=== PATIENT | male | born 1950 | race Caucasian/White ===

== ENCOUNTER 2018-10-26 12:11 | Emergency (ER) | payer OTHER, BC ==
--- OUTSIDE RECORDS SUMMARY | 2018-10-26 12:13 | XMS REPORT | Continuity of Care Document ---
:1950 Author Organization Interface Problems Problem Status Onset Classification Date Comments Source Date Reported FACIAL Active [facility] FRACTURE [facility] FRACTURE OF Active [facility] NASAL BONES, Medical INIT ENCNTR Center FOR FRACTURE OF Active [facility] ORBITAL Medical FLOOR, INIT Center ENCNTR F Medications Medication Details Route Status Patient Ordering Order Source Instructions Provider Date Allergies, Adverse Reactions, Alerts Substance Category Reaction Severity Reaction Status Date Comments Source type Reported Immunizations Immunization Date Given Site Status Last Updated Comments Source Results Order Results Value Reference Date Interpretation Comments Source Name Range Vital Signs Vital Sign Value Date Comments Source Encounters Location Location Encounter Encounter Reason Attending ADM DC Status Source Details Type Number For Provider Date Date Visit Procedures Procedure Code Date Perfomer Comments Source
--- OUTSIDE RECORDS SUMMARY | 2018-10-26 12:14 | XMS REPORT ---
:1950 [facility] Address [address] [place] [address] Care Team Providers Name Role Phone Unavailable Unavailable Unavailable Payers Payer Name Policy Type Policy Number Effective Date Expiration Date Problems This patient has no known problems. Allergies, Adverse Reactions, Alerts Allergy Allergy Status Severity Reaction(s) Onset Inactive Treating Comments Name Type Date Date Clinician No Known DA Active U 2018-09 Allergies 15 00:00:0 0 Medications This patient has no known medications. Results Test Description Test Time Test Comments Text Results Atomic Results Result Comments BASIC METABOLIC PANEL 2018-10-22 07:26:00 Test Item Value Reference Range Comments SODIUM (test code=NA) 137 mmol/L 136-145 POTASSIUM (test code=K) 5.1 mmol/L 3.5-5.1 CHLORIDE (test code=CL) 103.0 mmol/L 98-107 CARBON DIOXIDE (test code=CO2) 21.6 mmol/L 21-32 GLUCOSE (test code=GLU) 127 mg/dL 70-110 BLOOD UREA NITROGEN (test 33 mg/dL 7-18 code=BUN) GLOMERULAR FILTRATION RATE (test 38.5 >60 Unit of measure: mL/min/1.73 code=GFR) [id number] Range:Healthy Adults >90 mL/min/1.73 m2 For Chronic Kidney Disease: Stage II Mild Decrease in GFR 60-90 Stage III Moderate Decrease in GFR 30-59 Stage IV Severe Decrease in GFR 15-29 Stage V Kidney Failure <15 CREATININE (test code=CREAT) 1.76 mg/dL 0.55-1.30 CALCIUM (test code=CA) 7.6 mg/dL 8.2-10.1 HGB [id number] 06:05:00 Test Item Value Reference Range Comments HEMOGLOBIN (test code=HGB) 12.0 g/dL 12-16 HEMATOCRIT (test code=HCT) 36.5 % 37-47 COMPREHENSIVE METABOLIC [id number] 15:18:00 Test Item Value Reference Range Comments SODIUM (test code=NA) 137 mmol/L 136-145 POTASSIUM (test code=K) 4.3 mmol/L 3.5-5.1 CHLORIDE (test code=CL) 102.0 mmol/L 98-107 CARBON DIOXIDE (test code=CO2) 25.3 mmol/L 21-32 GLUCOSE (test code=GLU) 82 mg/dL 70-110 BLOOD UREA NITROGEN (test 15 mg/dL 7-18 code=BUN) GLOMERULAR FILTRATION RATE 55.1 >60 Unit of measure: (test code=GFR) mL/min/1.73 [id number] Range:Healthy Adults >90 mL/min/1.73 m2 For Chronic Kidney Disease: Stage II Mild Decrease in GFR 60-90 Stage III Moderate Decrease in GFR 30-59 Stage IV Severe Decrease in GFR 15-29 Stage V Kidney Failure <15 CREATININE (test code=CREAT) 1.29 mg/dL 0.55-1.30 TOTAL PROTEIN (test code=PROT) 6.7 g/dL 6.4-8.2 ALBUMIN (test code=ALB) 3.7 g/dL 3.4-5.0 GLOBULIN (test code=GLOB) 3.0 g/dL 2.2-4.2 ALBUMIN/GLOBULIN RATIO (test 1.2 0.7-2.0 code=A/G) CALCIUM (test code=CA) 8.4 mg/dL 8.2-10.1 BILIRUBIN TOTAL (test 0.40 mg/dL 0.2-1.00 code=BILT) SGOT/AST (test code=AST) 31.0 U/L 15-37 SGPT/ALT (test code=ALT) 31.0 U/L 12-78 Please note new normal range. ALKALINE PHOSPHATASE TOTAL 86 U/L 46-116 (test code=ALKP) PROTHROMBIN [id number] 15:15:00 Test Item Value Reference Range Comments PROTHROMBIN TIME PATIENT 11.7 secs 10.1-12.5 (test code=PTP) INTERNATIONAL NORMAL RATIO 1.04 <2.0 RECOMMENDED THERAPEUTIC RANGE (test code=INR) FOR ORAL ANTICOAGULANTTREATMENT: CONDITION INRProphylaxis of venous thrombosis in 2.0 - 3.0 high-risk medical or surgical patientsTreatment of venous thrombosis 2.0 - 3.0Prevention of embolism 2.0 - 3.0Prevention of recurrent embolism, or 3.0 - 4.5 patients with mechanical prosthetic intravascular valves IS PATIENT ON ANTICOAGULANTS ? YLIST ANTICOAGULANT/ANTI PLT MEDICATION : AspirinHas Lab been notified if Patient is on Heparin Drip? NOIf Yes, order CBC , OCCULT BLOOD, PT every other day NTHROMBOPLASTIN TIME [id number] 15:15: 00 Test Item Value Reference Range Comments PTT ACTIVATED (test code=APTT) 30.1 secs 24.9-37.0 IS PATIENT ON ANTICOAGULANTS ? YLIST ANTICOAGULANT/ANTI PLT MEDICATION : AspirinHas Lab been notified if Patient is on Heparin Drip? NOIf Yes, order CBC , OCCULT BLOOD, PT every other day NCBC W/AUTO [id number] 14:52:00 Test Item Value Reference Range Comments WHITE BLOOD CELL (test code=WBC) 7.9 K/mm3 5.7-10.5 RED BLOOD CELL (test code=RBC) 4.70 M/mm3 4.2-5.4 HEMOGLOBIN (test code=HGB) 14.4 g/dL 12-16 HEMATOCRIT (test code=HCT) 43.7 % 37-47 MEAN CELL VOLUME (test code=MCV) 93 fL 80-98 MEAN CELL HGB (test code=MCH) 30.6 pg 27-34 MEAN CELL HGB CONCENTRATION (test code=MCHC) 33.0 g/dL 30.8-34.1 RED CELL DISTRIBUTION WIDTH (test code=RDW) 14.0 % 11-16 PLT (test code=PLT) 270 K/mm3 130-400 MEAN PLATELET VOLUME (test code=MPV) 10.5 fL 8.9-12.1 NEUTROPHIL % (test code=NT%) 57.8 % 45-70 LYMPHOCYTE % (test code=LY%) 30.7 % 20-40 MONOCYTE % (test code=MO%) 9.2 % 3-10 EOSINOPHIL % (test code=EO%) 1.5 % 1-5 BASOPHIL % (test code=BA%) 0.4 % 0.0-1.1 NEUTROPHIL # (test code=NT#) 4.59 K/mm3 2.00-7.50 LYMPHOCYTE # (test code=LY#) 2.44 K/mm3 1.50-4.00 MONOCYTE # (test code=MO#) 0.73 K/mm3 0.2-0.8 EOSINOPHIL # (test code=EO#) 0.12 K/mm3 0.04-0.4 BASOPHIL # (test code=BA#) 0.03 K/mm3 0.02-0.10 MANUAL DIFF REQUIRED (test code=MDIFF) NO MANUAL DIFF NUCLEATED RED BLOOD CELL (test code=NRBC) 0 % 0-0
[2018-10-26 14:05] LABS: Absolute Lymphocytes (CBC) 1.6 K/uL (0.7-4.9); Absolute Neutrophil 7.5 K/uL (1.8-8.0); Basophils % 0.3 % (0-1.3); Eosinophils % 1.1 % (0-4.4); Hematocrit 36.8 % (39.6-49.0); Lymphocytes % 15.6 % (15.3-44.8); MPV 8.3 fL (7.6-11.3); Monocytes % 9.8 % (3.3-12.3); RBC Red Blood Cell Count 3.88 M/uL (4.33-5.43)
[2018-10-26 14:06] LABS: Protime INR 1.27
[2018-10-26] MEDS ORDERED: NA CHLORIDE 0.9% 1,000 ML ONE (14:16)
[2018-10-26 14:23] LABS: ALT/SGPT 24 U/L (12-78); AST/SGOT 32 U/L (15-37); Albumin 3.2 g/dL (3.4-5.0); Alkaline Phosphatase 62 U/L (45-117); BUN Blood Urea Nitrogen 20 mg/dL (7-18); Bicarbonate 25 mmol/L (21-32); Bilirubin Direct 0.2 mg/dL (0-0.2); Bilirubin Total 0.8 mg/dL (0.2-1.0); Glucose Level 90 mg/dL (74-106); Magnesium 2.6 mg/dL (1.8-2.4); NT PRO-BNP 137 pg/mL (<125); Potassium 4.5 mmol/L (3.5-5.1); Protein, Total 6.8 g/dL (6.4-8.2); Sodium Level 136 mmol/L (136-145); Troponin (Emerg Dept Use Only) < 0.02 ng/mL (0.0-0.045)
--- NOTE | 2018-10-26 14:23 | RAD REPORT ---
EXAM DESCRIPTION: RAD - Chest Single View - 10/26/2018 2:17 pm CLINICAL HISTORY: COPD COMPARISON: October 2017 TECHNIQUE: AP portable chest image was obtained 1401 hours . FINDINGS: No acute lung parenchymal process. Scarring and granulomatous calcifications are noted and stable. No failure or volume overload. Heart and vasculature are normal. No measurable pleural effus ion and no pneumothorax. No acute bony abnormality seen. No acute aortic findings suspected. IMPRESSION: No acute cardiopulmonary process. No significant interval change.
[2018-10-26] MEDS ORDERED: ONDANSETRON 4 MG/2 ML VIAL ONE (15:02)
[2018-10-26] MEDS ORDERED: MORPHINE 4 MG/ML SYR ONE (15:02)
--- NOTE | 2018-10-26 15:57 | ER ---
Nurse's Notes [facility] Name: Jagjit Chong Age: 68 yrs Sex: Male : 1950 Arrival Date: 10/26/2018 Time: 12:14 Bed 26 Private MD: Unknown, Unknown Diagnosis: Edema, unspecified;Chronic obstructive pulmonary disease, unspecified Presentation: 10/26 12:23 Presenting complaint: Patient states: surgery on left knee on 10/21/18 in [place] and sv noticed on Friday the swelling and "looking white on the bottom". Transition of care: patient was not received from another setting of care. Onset of symptoms was October 24, 2018. Care prior to arrival: None. 12:23 Method Of Arrival: Wheelchair sv 12:23 Acuity: CARMINA 3 sv 15:40 Risk Assessment: Do you want to hurt yourself or someone else? Patient reports no aj1 desire to harm self or others. Initial Sepsis Screen: Does the patient meet any 2 criteria? No. Patient's initial sepsis screen is negative. Does the patient have a suspected source of infection? No. Patient's initial sepsis screen is negative. Triage Assessment: 12:23 General: Appears in no apparent distress. uncomfortable, Behavior is calm, cooperative, sv appropriate for age. Pain: Complains of pain in left leg Pain currently is 4 out of 10 on a pain scale. Neuro: Level of Consciousness is awake, alert, obeys commands, Oriented to person, place, time, situation. Respiratory: Airway is patent Respiratory effort is even, unlabored, Respiratory pattern is regular, symmetrical. Musculoskeletal: Swelling present in left leg. Historical: - Allergies: 12:26 No Known Allergies; sv - PMHx: 12:26 COPD; High Cholesterol; Hypertension; left shoulder DVT; sv - PSHx: 12:26 left knee; left facial; sv - Immunization history:: Adult Immunizations up to date. - Social history:: Smoking status: Patient uses tobacco products, smokes 1.5 packs per day. - Ebola Screening: : No symptoms or risks identified at this time. - Family history:: not pertinent. Screenin:17 Abuse screen: Denies threats or abuse. Denies injuries from another. Nutritional aj1 screening: No deficits noted. Tuberculosis screening: No symptoms or risk factors identified. Assessment: 13:17 General: Appears in no apparent distress. uncomfortable, Behavior is calm, cooperative, aj1 appropriate for age. Pain: Complains of pain in left knee. Neuro: Level of Consciousness is awake, alert, obeys commands, Oriented to person, place, time, situation. Cardiovascular: Patient's skin is warm and dry. Edema is 3+ to left knee, left midcalf, left ankle and left foot. Respiratory: Airway is patent Respiratory effort is even, unlabored, Respiratory pattern is regular, symmetrical. GI: No signs and/or symptoms were reported involving the gastrointestinal system. : No signs and/or symptoms were reported regarding the genitourinary system. EENT: No signs and/or symptoms were reported regarding the EENT system. Derm: Wound noted left knee Wound is surgical incision, covered with bandage that says "remove on 10.28" small amount of drainage noted to bandage. Redness noted around knee, patient states that he can't remember if that redness has been present of has recently developed. 14:18 Reassessment: Patient appears in no apparent distress at this time. No changes from aj1 previously documented assessment. Patient and/or family updated on plan of care and expected duration. Pain level reassessed. Patient is alert, oriented x 3, equal unlabored respirations, skin warm/dry/pink. 15:20 Reassessment: Patient is alert, oriented x 3, equal unlabored respirations, skin aj1 warm/dry/pink. Ultrasound at bedside. Vital Signs: 12:26 BP 133 / 68; Pulse 94; Resp 20; Temp 98.2; Pulse Ox 97% ; Weight 81.65 kg; Height 5 ft. sv 5 in. (165.10 cm); Pain 4/10; 14:18 BP 118 / 87; Pulse 85; Resp 18; Pulse Ox 98% on R/A; aj1 15:20 BP 130 / 59; Pulse 97; Resp 18; Pulse Ox 97% ; aj1 16:25 BP 125 / 78; Pulse 90; Resp 18; Temp 98; Pulse Ox 100% on R/A; mg2 12:26 Body Mass Index 29.95 (81.65 kg, 165.10 cm) sv ED Course: 12:14 Patient arrived in ED. ag5 12:14 Unknown, Unknown is Private Physician. ag5 12:25 Triage completed. sv 12:28 Arm band placed on. sv 13:10 Griselda Tran, RN is Primary Nurse. aj1 13:17 Sam Jones MD is Attending Physician. [facility] 13:17 Patient has correct armband on for positive identification. Bed in low position. Call aj1 light in reach. Side rails up X 1. 13:17 No provider procedures requiring assistance completed. aj1 13:57 Initial lab(s) drawn, by me, sent to lab. Inserted saline lock: 20 gauge in right lt1 antecubital area, using aseptic technique. 14:00 X-ray completed. Portable x-ray completed in exam room. Patient tolerated procedure tm4 well. 14:02 XRAY Chest (1 view) In Process Unspecified. EDMS 15:34 US Extremity Venous W Compression Andrea In Process Unspecified. EDMS 16:24 IV discontinued, intact, bleeding controlled, No redness/swelling at site. Pressure mg2 dressing applied. Administered Medications: 14:06 Drug: NS 0.9% 1000 ml Route: IV; Rate: 125 ml/hr; Site: right antecubital; aj1 14:50 Drug: Zofran 4 mg Route: IVP; Site: right antecubital; 14:59 Drug: morphine 4 mg Route: IVP; Site: right antecubital; 16:08 Not Given (Pt states that he will take his dose tonight as he usually does, OK per Dr. kimberlee Jones): Xarelto 10 mg PO once Outcome: 15:57 Discharge ordered by . [facility] 16:25 Discharged to home via wheelchair, with family. mg2 16:25 Condition: stable 16:25 Discharge instructions given to patient, family, Instructed on discharge instructions, follow up and referral plans. medication usage, Demonstrated understanding of instructions, follow-up care, medications, Prescriptions given X 1. 16:25 Patient left the ED. mg2 Signatures: Dispatcher [employer] EDMS Griselda Tran, RN RN aj1 Park Wright RN RN sv Anderson, Corey, MD MD cha Marroquin, Tracy tm4 Sole Hess RN RN Stef Post RN RN mg2 Christian, Hilton ag5 Vazquez, Katrina lt1 Corrections: (The following items were deleted from the chart) 12:28 12:26 Pulse 94bpm; Resp 20bpm; Pulse Ox 96%; Temp 98.2F; 81.65 kg; Height 5 ft. 5 in.; sv BMI: 29.9; sv
--- NOTE | 2018-10-26 15:58 | EDPHYS ---
Physician Documentation [facility] Name: Jagjit Chong Age: 68 yrs Sex: Male : 1950 Arrival Date: 10/26/2018 Time: 12:14 Bed 26 Private MD: Unknown, Unknown ED Physician Sam Jones HPI: 10/26 13:44 This 68 yrs old Male presents to ER via Wheelchair with complaints of KNEE yazmin SWELLING. 13:44 The patient presents with decreased range of motion, pain, swelling, tenderness. The yazmin complaints affect the lateral aspect of left thigh, lateral aspect of left knee, lateral aspect of left calf, left hamstring, posterior aspect of left knee, left calf, medial aspect of left thigh, medial aspect of left knee, medial aspect of left calf, left quadriceps, left knee and left acosta. Context: The problem was sustained at home. Onset: The symptoms/episode began/occurred 3 day(s) ago. Modifying factors: The symptoms are alleviated by nothing. the symptoms are aggravated by nothing. Associated signs and symptoms: Pertinent positives: calf tenderness, warmth. Treatment prior to arrival includes: elevation of the extremity, prescription medications, xarelto 10mg daily. Severity of symptoms: At their worst the symptoms were mild, in the emergency department the symptoms are unchanged. The patient has not experienced similar symptoms in the past. Historical: - Allergies: 12:26 No Known Allergies; sv - PMHx: 12:26 COPD; High Cholesterol; Hypertension; left shoulder DVT; sv - PSHx: 12:26 left knee; left facial; sv - Immunization history:: Adult Immunizations up to date. - Social history:: Smoking status: Patient uses tobacco products, smokes 1.5 packs per day. - Ebola Screening: : No symptoms or risks identified at this time. - Family history:: not pertinent. ROS: 13:44 Constitutional: Negative for fever, chills, and weight loss, Eyes: Negative for injury, yazmin pain, redness, and discharge, ENT: Negative for injury, pain, and discharge, Neck: Negative for injury, pain, and swelling, Cardiovascular: Negative for chest pain, palpitations, and edema, Respiratory: Negative for shortness of breath, cough, wheezing, and pleuritic chest pain, Abdomen/GI: Negative for abdominal pain, nausea, vomiting, diarrhea, and constipation, Back: Negative for injury and pain, : Negative for injury, bleeding, discharge, and swelling, Skin: Negative for injury, rash, and discoloration, Neuro: Negative for headache, weakness, numbness, tingling, and seizure, Psych: Negative for depression, anxiety, suicide ideation, homicidal ideation, and hallucinations, Allergy/Immunology: Negative for hives, rash, and allergies, Endocrine: Negative for neck swelling, polydipsia, polyuria, polyphagia, and marked weight changes, Hematologic/Lymphatic: Negative for swollen nodes, abnormal bleeding, and unusual bruising. 13:44 MS/extremity: Positive for decreased range of motion, pain, swelling, tenderness, of the left leg. Exam: 13:44 Constitutional: This is a well developed, well nourished patient who is awake, alert, yazmin and in no acute distress. Head/Face: Normocephalic, atraumatic. Eyes: Pupils equal round and reactive to light, extra-ocular motions intact. Lids and lashes normal. Conjunctiva and sclera are non-icteric and not injected. Cornea within normal limits. Periorbital areas with no swelling, redness, or edema. ENT: Nares patent. No nasal discharge, no septal abnormalities noted. Tympanic membranes are normal and external auditory canals are clear. Oropharynx with no redness, swelling, or masses, exudates, or evidence of obstruction, uvula midline. Mucous membranes moist. Neck: Trachea midline, no thyromegaly or masses palpated, and no cervical lymphadenopathy. Supple, full range of motion without nuchal rigidity, or vertebral point tenderness. No Meningismus. Chest/axilla: Normal chest wall appearance and motion. Nontender with no deformity. No lesions are appreciated. Cardiovascular: Regular rate and rhythm with a normal S1 and S2. No gallops, murmurs, or rubs. Normal PMI, no JVD. No pulse deficits. Respiratory: Lungs have equal breath sounds bilaterally, clear to auscultation and percussion. No rales, rhonchi or wheezes noted. No increased work of breathing, no retractions or nasal flaring. Abdomen/GI: Soft, non-tender, with normal bowel sounds. No distension or tympany. No guarding or rebound. No evidence of tenderness throughout. Back: No spinal tenderness. No costovertebral tenderness. Full range of motion. Skin: Warm, dry with normal turgor. Normal color with no rashes, no lesions, and no evidence of cellulitis. Neuro: Awake and alert, GCS 15, oriented to person, place, time, and situation. Cranial nerves II-XII grossly intact. Motor strength 5/5 in all extremities. Sensory grossly intact. Cerebellar exam normal. Normal gait. Psych: Awake, alert, with orientation to person, place and time. Behavior, mood, and affect are within normal limits. 13:44 Musculoskeletal/extremity: DVT Exam: negative Homans' sign noted on exam, no appreciated bluish discoloration, pain, swelling, tenderness, erythema, increased warmth. Vital Signs: 12:26 BP 133 / 68; Pulse 94; Resp 20; Temp 98.2; Pulse Ox 97% ; Weight 81.65 kg; Height 5 ft. sv 5 in. (165.10 cm); Pain 4/10; 14:18 BP 118 / 87; Pulse 85; Resp 18; Pulse Ox 98% on R/A; aj1 15:20 BP 130 / 59; Pulse 97; Resp 18; Pulse Ox 97% ; aj1 16:25 BP 125 / 78; Pulse 90; Resp 18; Temp 98; Pulse Ox 100% on R/A; mg2 12:26 Body Mass Index 29.95 (81.65 kg, 165.10 cm) sv MDM: 13:17 Patient medically screened. [facility] 13:50 Data reviewed: vital signs, nurses notes, lab test result(s), EKG, radiologic studies, [facility] doppler, plain films. 10/26 13:43 Order name: Basic Metabolic Panel [facility] 10/26 13:43 Order name: CBC with Diff [facility] 10/26 13:43 Order name: LFT's [facility] 10/26 13:43 Order name: Magnesium [facility] 10/26 13:43 Order name: NT PRO-BNP; Complete Time: 14:42 [facility] 10/26 13:43 Order name: PT-INR; Complete Time: 14:42 [facility] 10/26 13:43 Order name: Troponin (emerg Dept Use Only); Complete Time: 14:42 [facility] 10/26 13:43 Order name: XRAY Chest (1 view); Complete Time: 14:42 [facility] 10/26 13:43 Order name: US Extremity Venous W Compression Andrea [facility] 10/26 13:46 Order name: Basic Metabolic Panel; Complete Time: 14:42 [facility] 10/26 13:46 Order name: CBC with Automated Diff; Complete Time: 14:42 [facility] 10/26 13:46 Order name: Liver (Hepatic) Function; Complete Time: 14:42 [facility] 10/26 13:46 Order name: Magnesium; Complete Time: 14:42 [facility] 10/26 13:43 Order name: EKG; Complete Time: 13:46 [facility] 10/26 13:43 Order name: Cardiac monitoring; Complete Time: 14:05 [facility] 10/26 13:43 Order name: EKG - Nurse/Tech; Complete Time: 14:05 [facility] 10/26 13:43 Order name: IV Saline Lock; Complete Time: 13:57 [facility] 10/26 13:43 Order name: Labs collected and sent; Complete Time: 13:57 [facility] 10/26 13:43 Order name: O2 Per Protocol; Complete Time: 14:06 [facility] 10/26 13:43 Order name: O2 Sat Monitoring; Complete Time: 14:06 [facility] Administered Medications: 14:06 Drug: NS 0.9% 1000 ml Route: IV; Rate: 125 ml/hr; Site: right antecubital; aj1 14:50 Drug: Zofran 4 mg Route: IVP; Site: right antecubital; ss 14:59 Drug: morphine 4 mg Route: IVP; Site: right antecubital; ss 16:08 Not Given (Pt states that he will take his dose tonight as he usually does, [place] per Dr. kimberlee Jones): Xarelto 10 mg PO once Disposition: 10/26/18 15:57 Discharged to Home. Impression: Edema, unspecified, Chronic obstructive pulmonary disease, unspecified. - Condition is Stable. - Discharge Instructions: Chronic Bronchitis, Edema, Edema, [id number], Peripheral Edema. - Prescriptions for Tylenol- Codeine #3 300-30 mg Oral Tablet - take 2 tablets by ORAL route every 6 hours As needed; 24 tablet. - Medication Reconciliation Form, Thank You Letter, Antibiotic Education, Prescription Opioid Use form. - Follow up: Private Physician; When: 2 - 3 days; Reason: Recheck today's complaints, Continuance of care, Re-evaluation by your physician. - Problem is new. - Symptoms have improved. Signatures: Dispatcher [employer] Griselda Garrett RN RN aj1 Park Wright, RN RN sv Sam Jones MD MD cha Smirch, Shelby, LUCILA RN ss Stef Post, LUCILA RN mg2 Corrections: (The following items were deleted from the chart) 16:25 15:57 10/26/2018 15:57 Discharged to Home. Impression: Edema, unspecified; Chronic mg2 obstructive pulmonary disease, unspecified. Condition is Stable. Forms are Medication Reconciliation Form, Thank You Letter, Antibiotic Education, Prescription Opioid Use. Follow up: Private Physician; When: 2 - 3 days; Reason: Recheck today's complaints, Continuance of care, Re-evaluation by your physician. Problem is new. Symptoms have improved. yazmin
--- NOTE | 2018-10-26 16:47 | RAD REPORT ---
EXAM DESCRIPTION: US - Extrem Venous W Compress Andrea - 10/26/2018 3:35 pm CLINICAL HISTORY: Leg pain, recent knee surgery, history arm DVT COMPARISON: None. TECHNIQUE: Real-time sonographic evaluation of the bilateral lower extremity common femoral, superfi cial femoral, popliteal and posterior tibial veins was performed. FINDINGS: Normal compressibility, flow augmentation, phasic flow and spontaneous flow are identified in the left and right lower extremity common femoral, superficial femoral, popliteal and posterior t ibial veins. No intraluminal filling defects seen. IMPRESSION: No DVT in either lower extremity.
--- NOTE | 2018-10-27 07:59 | EKG ---
Test Date: 2018-10-26 Test Time: 14:03:43 Densitometrist: MARIA TERESAT MEASUREMENT RESULTS: Intervals: Rate: 84 IA: 174 QRSD: 90 QT: 352 QTc: 415 [place]: P: 62 IA: 174 QRS: 37 T: 50 INTERPRETIVE STATEMENTS: Normal sinus rhythm Possible Anterior infarct, age undetermined Abnormal ECG Compared to ECG 09/24/2015 11:38:47 Incomplete right bundle-branch block no longer present Myocardial infarct finding still present Electronically Signed On 10-27-18 07:57:13 CDT by Main Rudolph
== END 2018-10-26 16:25 | disposition home or self-care (01) ==
LOC: ER 12:11
DX: R60.9 Edema, unspecified (principal); J44.9 Chronic obstructive pulmonary disease, unspecified; I10 Essential (primary) hypertension; F17.210 Nicotine dependence, cigarettes, uncomplicated; Z79.01 Long term (current) use of anticoagulants; Z86.718 Personal history of other venous thrombosis and embolism
CPT/HCPCS: 93005; 85025; 80048; 36415; 83735; 85610; 80076; 84484; 83880; 71045; 93970; 96375; 96374; 99284; J7030; J2405